=== PATIENT | male | born 1990 | race African-American/Black ===

== ENCOUNTER 2025-03-14 15:32 | Emergency (ER) | payer OTHER ==
[~2025-03-14] VITALS: Ht 188 cm; Wt 100.0 kg
[2025-03-14 15:44] VITALS: O2SAT 99
[2025-03-14] MEDS: SODIUM CHLORIDE 0.9% 1,000 ML IV ONE (16:30)
[2025-03-14] MEDS: LEVETIRACETAM 500MG PREMIX 100 ML IV ONE (17:31)
[2025-03-14 17:32] LABS: BASOPHILS % 0.2 % (0.0-2.0); EOSINOPHILS % 0.9 % (0.0-5.0); HEMATOCRIT. 44.2 % (42.0-52.0); HEMOGLOBIN. 14.9 g/dL (14.0-18.0); LYMPHOCYTES % 15.2 % (20.0-50.0); MEAN PLATELET VOLUME 6.8 fl (7.4-10.4); MONOCYTES % 6.1 % (2.0-8.0); NEUTROPHILS % 77.6 % (40.0-76.0); PLATELET 263 x1000/uL (130-400); RED BLOOD CELL COUNT 4.84 mill/uL (4.7-6.1); RED CELL DISTRIBUTION WIDTH 13.7 % (11.6-14.6)
[2025-03-14 17:49] LABS: CREATININE 1.4 mg/dL (0.6-1.3); UREA NITROGEN BLOOD 10 mg/dL (9-23)
[2025-03-14 17:50] LABS: ASPARTATE AMINOTRANSFERASE 22 IU/L (<34)
[2025-03-14 17:51] LABS: BILIRUBIN DIRECT 0.1 mg/dL (<=3.0); BILIRUBIN TOTAL 0.6 mg/dL (0.1-1.0); PROTEIN TOTAL 7.6 g/dL (6.0-8.3)
[2025-03-14 17:53] VITALS: BP 122/63; PULSE 83; RESP 18; TEMP 37.1; O2SAT 99
== END 2025-03-14 18:20 | disposition home or self-care (01) ==
LOC: ER 15:32
DX: G40.909 Epilepsy, unspecified, not intractable, without status epilepticus (principal)
CPT/HCPCS: 80076; 80048; 80320; 85025; 36415; 70450; 93005; 96361; 96365; 99285; J1953; J7030; G0480